=== PATIENT | female | born 1975 | race Caucasian/White ===

== ENCOUNTER → 2022-09-30 | Day surgery (SDC) | payer MEDICARE, MEDICAID ==
[~2022-09-30] MED LIST: Lactated Ringers 1,000 ML IV SCH; Midazolam 1 MG/ML 2 ML SDV ONE; Propofol 200 MG/20 ML SDV ONE; fentaNYL 50 MCG/ML SDV ONE
[2022-09-30 08:44] VITALS: BP 122/65; PULSE 81
== END ==
LOC: JP.SDS 06:34
PROVIDERS: ATTEND Family Medicine
DX: Z12.11 Encounter for screening for malignant neoplasm of colon (principal); K63.5 Polyp of colon; Z80.0 Family history of malignant neoplasm of digestive organs
CPT/HCPCS: 45380; 88305; J2250; J2704; J3010